=== PATIENT | female | born 1985 | race Caucasian/White ===

== ENCOUNTER 2020-05-19 12:42 | Emergency (ER) | payer SELFPAY ==
[~2020-05-19] VITALS: Ht 177.8 cm; Wt 57.6 kg
[2020-05-19 12:56] VITALS: BP 143/84
[2020-05-19] MEDS ORDERED: LIDOCAINE-MPF 1%, 5ML ONE (14:55)
[2020-05-19] MEDS ORDERED: LIDOCAINE-MPF 1%, 5ML INFIL ONE (15:00)
[2020-05-19] MEDS ORDERED: DOXYCYCLINE 100MG TABLET ONE (15:46)
[2020-05-19] MEDS ORDERED: IBUPROFEN 600 MG TABLET ONE (15:54)
[2020-05-19] MEDS ORDERED: NEOSPORIN OINT. PKT 1 PACKET ONE (15:56)
[2020-05-19] MEDS ORDERED: IBUPROFEN 600 MG TABLET PO ONE (16:00)
[2020-05-19] MEDS ORDERED: DOXYCYCLINE 100MG TABLET PO ONE (16:00)
== END 2020-05-19 16:02 | disposition home or self-care (01) ==
LOC: ED 15:55
DX: L03.011 Cellulitis of right finger (principal); X58.XXXA Exposure to other specified factors, initial encounter; Y93.89 Activity, other specified; Y92.009 Unspecified place in unspecified non-institutional (private) residence as the place of occurrence of the external cause; Y99.8 Other external cause status
CPT/HCPCS: 10060; 99283